=== PATIENT | male | born 1970 | race Caucasian/White ===

== ENCOUNTER → 2023-01-08 11:12 | Outpatient (CLI) | payer OTHER, SELFPAY ==
--- NOTE | 2023-01-08 11:13 | DI.CT.S_ITS ---
PROCEDURE: CT ABDOMEN PELVIS WO/W CON INDICATIONS: lower urinary tract symptoms TECHNIQUE: Optional 5 mm thick noncontrast images acquired from the diaphragm to the symphysis pubis. After the administration of intravenous contrast, 5 mm thick images acquired from the diaphragm to the symphysis pubis after a 10-minute delay. 2 mm thick coronal and sagittal reformats were then performed of the kidneys and ureters. For radiation dose reduction, the following was used: automated exposure control, adjustment of mA and/or kV according to patient size. COMPARISON: None. FINDINGS: Image quality: Excellent. Lung bases: Lung bases are clear. Heart size is normal. Urinary system: Both kidneys are normal in size, without hydronephrosis or nephrolithiasis on pre-contrast images. No perinephric fat stranding. There is normal bilateral renal enhancement. Renal calyces appear normal in morphology when filled with contrast. Opacified portions of both ureters demonstrate normal caliber. Bladder wall thickness is normal. No calcified bladder stones. Other solid organs: Liver is normal in size and enhancement. Gallbladder is unremarkable . Biliary system is non dilated. Pancreas enhances normally. Spleen is normal in size and enhancement. No adrenal nodules. Peritoneum and bowel: Bowel loops demonstrate normal wall thickness and caliber. No free fluid or air. Nodes and vessels: No retroperitoneal or mesenteric adenopathy by size criteria. Aorta and inferior vena cava are normal in size. Abdominal wall: No ventral hernias. Pelvis: No pathologic free pelvic fluid. No inguinal hernias or adenopathy. Prior TURP. Vasectomy clips. Prostatomegaly. Bones: No suspicious bony lesions. No vertebral body compression fractures. IMPRESSION: Negative CT IVP. No nephrolithiasis and no filling defect within the opacified renal collecting system. Dictated by: Christophe Bennett M.D. on 01/08/2023 at 14:46 Approved by: Christophe Bennett M.D. on 01/08/2023 at 14:51
== END ==
PROVIDERS: PCP Family Medicine; Referring Provider Urology; Visit Provider Urology
DX: R39.9 Unspecified symptoms and signs involving the genitourinary system (principal); Z87.898 Personal history of other specified conditions; Z87.438 Personal history of other diseases of male genital organs
CPT/HCPCS: 74178; Q9967

== ENCOUNTER → 2023-06-26 15:03 | Outpatient (CLI) | payer OTHER, SELFPAY ==
[2023-06-26 16:21] LABS: Prostate Specific Antigen 3.67 ng/mL (0.10-4.00)
== END ==
PROVIDERS: PCP Family Medicine; Referring Provider Urology; Visit Provider Urology
DX: R39.89 Other symptoms and signs involving the genitourinary system (principal)
CPT/HCPCS: 36415; 84153

== ENCOUNTER → 2023-08-26 14:11 | Outpatient (CLI) | payer OTHER, SELFPAY ==
[2023-08-26 16:12] LABS: Prostate Specific Antigen 3.46 ng/mL (0.10-4.00)
== END ==
PROVIDERS: PCP Family Medicine; Referring Provider Urology; Visit Provider Urology
DX: R39.89 Other symptoms and signs involving the genitourinary system (principal)
CPT/HCPCS: 36415; 84153

== ENCOUNTER → 2023-09-24 14:56 | Outpatient (CLI) | payer OTHER, SELFPAY ==
[2023-09-24 17:28] LABS: Prostate Specific Antigen 3.08 ng/mL (0.10-4.00)
== END ==
LOC: LAB 14:57
PROVIDERS: PCP Family Medicine; Referring Provider Urology; Visit Provider Urology
DX: R39.89 Other symptoms and signs involving the genitourinary system (principal)
CPT/HCPCS: 36415; 84153

== ENCOUNTER → 2024-11-06 12:48 | Outpatient (CLI) | payer OTHER, SELFPAY ==
[2024-11-06 15:04] LABS: Prostate Specific Antigen 3.58 ng/mL (0.10-4.00)
== END ==
LOC: LAB 12:52
PROVIDERS: PCP Family Medicine; Referring Provider Urology; Visit Provider Urology
DX: R97.20 Elevated prostate specific antigen [PSA] (principal)
CPT/HCPCS: 36415; 84153